=== PATIENT | female | born 1975 | race Caucasian/White ===

== ENCOUNTER 2016-06-26 16:54 | Emergency (ER) | payer BC, OTHER ==
[2016-06-26] MEDS ORDERED: TORAdol 30 mg Injection IM ONE (18:11)
[2016-06-26] MEDS ORDERED: Phenergan 25 MG INJ IM ONE (18:11)
[2016-06-26] MEDS ORDERED: Phenergan 25 MG INJ ONE (18:13)
[2016-06-26] MEDS ORDERED: TORAdol 30 mg Injection ONE (18:13)
--- NOTE | 2016-06-26 18:15 | ERPHSYRPT ---
- History of Present Illness Time Seen by Provider: 06/26/16 18:08 Source: patient Patient Subjective Stated Complaint: PT REPORTS HEADACHE BEGINNING YESTERDAY- STATES SHE HAS A HX-DENIES DIFFERENCES IN THIS ONE-DENIES NUMBNESS OR TINLGING- DENIES VISUAL CHANGES-REPORTS NAUSEA BUT DENIES VOMITING Triage Nursing Assessment: PT PINK WARM ET DRY-PUPILS REACTIVE-PT MOVING ALL EXTREMITIES WITH EASE-PT A & O X 3 Physician History: This is a 40-year-old morbidly obese white female she arrives with complaint of a headache frontal area symptoms since yesterday she states she has had nausea she states she has had photophobia she denies any vomiting she has no fevers Past medical history includes migraines, hypothyroid, high blood pressure, GERD , anxiety. Past surgical history includes appendectomy. Patient states she is on Depo-Provera shots. Timing/Duration: yesterday Severity: moderate Modifying Factors: Improves With: nothing Associated Symptoms: nausea, headaches, other (photophobia), No vomiting, No abdominal pain, No shortness of breath, No heartburn, No diaphoresis, No cough, No chills, No chest pain, No fever, No loss of appetite, No malaise, No rash, No syncope, No seizure, No weakness Allergies/Adverse Reactions: No Known Drug Allergies Allergy (Verified 06/26/16 17:30) Home Medications: Enalapril Maleate [Vasotec] 10 mg PO QHS 02/09/12 [History] Levothyroxine Sodium 150 Mcg [Synthroid 150 Mcg] 125 mcg PO DAILY 06/09/15 [History] Medroxyprogesterone Acetate [Depo-Provera] 150 mg IM DIRECTIONS UNKNOWN [History] Potassium 99 mg PO QHS 06/09/15 [History] Hx Tetanus, Diphtheria Vaccination/Date Given: Yes Hx Influenza Vaccination/Date Given: Yes Hx Pneumococcal Vaccination/Date Given: No Immunizations Up to Date: Yes - Review of Systems Constitutional: No Fever, No Chills Eyes: Photophobia, No Discharge, No Eye Pain, No Eye Redness, No Itchy, No Tearing, No Vision Changes, No Double Vision, No Foreign Body Sensation Ears, Nose, & Throat: No Symptoms, No Ear Pain, No Ear Discharge, No Hearing Changes, No Tinnitus, No Nose Pain, No Nose Congestion, No Nose Discharge, No Sinus Drainage, No Epistaxis, No Mouth Pain, No Mouth Swelling, No Loose Teeth, No Throat Pain, No Throat Swelling, No Hoarse, No Painful Swallowing, No Snoring , No Stridor Respiratory: No Cough, No Dyspnea Cardiac: No Chest Pain, No Edema, No Syncope Abdominal/Gastrointestinal: No Abdominal Pain, No Nausea, No Vomiting, No Diarrhea Genitourinary Symptoms: No Dysuria Musculoskeletal: No Symptoms Skin: No Rash Neurological: Headache, No Dizziness, No Focal Weakness, No Gait Changes, No Irritability, No Lethargy, No Paralysis, No Parasthesia, No Seizure, No Sensory Changes, No Speech Changes, No Tics, No Tremors, No Vertigo Psychological: No Symptoms Endocrine: No Symptoms All Other Systems: Reviewed and Negative - Past Medical History Pertinent Past Medical History: Yes Neurological History: Migraines ENT History: No Pertinent History Cardiac History: Hypertension Respiratory History: No Pertinent History Endocrine Medical History: Hypothyroidism Musculoskeletal History: No Pertinent History GI Medical History: GERD History: No Pertinent History Psycho-Social History: Anxiety Female Reproductive Disorders: No Pertinent History Other Medical History: history of falling august of 2014, pt states I tripped. - Past Surgical History Past Surgical History: Yes Neuro Surgical History: No Pertinent History Cardiac: No Pertinent History Respiratory: No Pertinent History Gastrointestinal: Appendectomy Genitourinary: No Pertinent History Musculoskeletal: No Pertinent History Female Surgical History: No Pertinent History Other Surgical History: appendectomy - Social History Smoking Status: Never smoker Exposure to second hand smoke: No Drug Use: none Patient Lives Alone: No - Female History Hx Last Menstrual Period: DEPO Hx Now: No - Nursing Vital Signs Nursing Vital Signs: Initial Vital Signs Temperature 98.1 F Temperature Source Oral Pulse Rate 99 Respiratory Rate 22 Blood Pressure [Right Arm] 166/80 Pain Intensity 6 - Physical Exam General Appearance: mild distress Eye Exam: PERRL/EOMI, eyes nml inspection, photophobia, other (fundi unremarkable) Ears, Nose, Throat Exam: normal ENT inspection, TMs normal, pharynx normal, moist mucous membranes Neck Exam: normal inspection, non-tender, supple, full range of motion Respiratory Exam: normal breath sounds, lungs clear, No respiratory distress Cardiovascular Exam: regular rate/rhythm, normal heart sounds, normal peripheral pulses Gastrointestinal/Abdomen Exam: soft, normal bowel sounds, No tenderness, No mass Back Exam: normal inspection, normal range of motion, No CVA tenderness, No vertebral tenderness Extremity Exam: normal inspection, normal range of motion, pelvis stable Neurologic Exam: alert, oriented x 3, cooperative, normal mood/affect, nml cerebellar function, nml station & gait, sensation nml, No motor deficits Skin Exam: normal color, warm, dry, No rash SpO2 Interpretation: normal - Course Nursing assessment & vital signs reviewed: Yes Ordered Tests: Medication Summary Discontinued Medications Generic Name Dose Route Start Last Admin Trade Name Shaun PRN Reason Stop Dose Admin Ketorolac Tromethamine 60 mg 06/26/16 18:11 06/26/16 18:19 Toradol 30 Mg Injection IM 06/26/16 18:12 60 mg STAT ONE Administration Ketorolac Tromethamine Confirm 06/26/16 18:13 Toradol 30 Mg Injection Administered 06/26/16 18:14 Dose 60 mg .ROUTE .STK-MED ONE Promethazine HCl 25 mg 06/26/16 18:11 06/26/16 18:18 Phenergan 25 Mg Inj IM 06/26/16 18:12 25 mg STAT ONE Administration Promethazine HCl Confirm 06/26/16 18:13 Phenergan 25 Mg Inj Administered 06/26/16 18:14 Dose 25 mg .ROUTE .STK-MED ONE - Progress Progress: improved Progress Note: 06/26/16 18:14 40-year-old morbidly obese white female with history of migraines hypothyroidism high blood pressure GERD anxiety. Who arrives with complaint of a headache since yesterday no fevers, positive photophobia positive nausea. Patient has a history of migraine she has been treated successfully with Phenergan and Toradol in the past. Will go ahead and give patient Toradol and Phenergan IM 06/26/16 18:48 Patient is improved but not completely pain-free she does feel like she can go home. Will discharge patient. Will give patient a small amount of [place] patient has very infrequent headaches. - Departure Time of Disposition: 18:48 Departure Disposition: Home Clinical Impression: Migraine headache Qualifiers: Migraine type: unspecified Status migrainosus presence: without status migrainosus Intractability: not intractable Qualified Code(s): G43.909 - Migraine, unspecified, not intractable, without status migrainosus Condition: Fair Critical Care Time: No Instructions: Headache Additional Instructions: Return home. Rest in a dark quiet room. Dun[place] 5/325 #12 one to 2 orally every 4-6 hours as needed for pain. Follow-up with your family symptoms no better in 24-48 hours become worse or persist longer than 72 hours. Return for acute distress or for severe symptoms. Prescriptions: Hydrocodone Bit/Acetaminophen [[place] 5-325 Tablet] 1 - 2 tab PO Q4-6HPRN PRN # 12 tablet PRN Reason: Pain
[2016-06-26 18:21] VITALS: BP 166/80; PULSE 99; O2SAT 97
== END 2016-06-26 18:55 | disposition home or self-care (01) ==
LOC: ED 16:54
DX: G43.909 Migraine, unspecified, not intractable, without status migrainosus (principal)
CPT/HCPCS: 96372; 99283; 99284; J1885; J2550

== ENCOUNTER 2017-07-01 07:42 | Observation (INO) | payer OTHER ==
[2017-07-01 08:33] LABS: Lactic Acid 4.1 (0.4-2.0)
[2017-07-01 08:34] LABS: Appearance CLOUDY (CLEAR); Bilirubin NEGATIVE (NEGATIVE); Blood 250 Ery/ul (0-5); Glucose NEGATIVE (NEGATIVE); Ketones NEGATIVE (NEGATIVE); Leukocyte Esterase TRACE (NEGATIVE); Nitrite NEGATIVE (NEGATIVE); Protein,Urine Dip 30 (Negative); Specific Gravity 1.025 (1.005-1.025); Urobilinogen NORMAL mg/dL (0-1)
[2017-07-01] MEDS ORDERED: Sodium Chloride 0.9% 1000 ML 1,000 ML IV STA ×2 (08:39→10:47)
[2017-07-01] MEDS ORDERED: Zofran 4 MG/2 ML VIAL IV ONE (08:39)
[2017-07-01] MEDS ORDERED: MORPHINE SULFATE 4 MG INJ IV ONE (08:39)
--- NOTE | 2017-07-01 08:39 | ERPHSYRPT ---
- History of Present Illness Time Seen by Provider: 07/01/17 08:15 Historian: patient Exam Limitations: no limitations Patient Subjective Stated Complaint: pain in lower abdomen Triage Nursing Assessment: pt alert and oritnedx3, able to ambulate by self, gait slightly unsteady, and patient became out of breath when walking, pupils perrla3, skin has neuro dermatitis all over arms and legs she picks at scabs so some are inflamed, pain on palpation to center lower abdomen, skin wamr dry and intact with exception of the sores from the dermatitis. leeetdella tejadaoems short of breath on exertion. Physician History: The patient is a morbidly obese 41-year-old female with her mother complaining of abdominal pain since yesterday morning. She is nauseated but has not vomited. She has had some loose stools. She's had spells of being chilled and then hot. She hasn't eaten much since yesterday. She also complains of having urinary frequency and urgency. She is short of breath but she claims this is due to her morbid obesity. She states her shortness of breath is unchanged. She denies chest pain. She is on Depo-Provera. She did not receive the influenza vaccination this year. Her past medical history is significant for morbid obesity, migraine headaches, anxiety, hypertension, GERD, hypothyroidism , and appendectomy. Timing/Duration: yesterday Activities at Onset: none Quality: aching Abdominal Pain Onset Location: suprapubic Pain Radiation: no radiation Severity of Pain-Max: moderate Severity of Pain-Current: moderate Modifying Factors: Improves With: nothing Associated Symptoms: diarrhea, nausea, No chest pain, No vomiting Previous symptoms: no prior history Allergies/Adverse Reactions: No Known Drug Allergies Allergy (Verified 06/26/16 17:30) Home Medications: Enalapril Maleate [Vasotec] 10 mg PO QHS 02/09/12 [History] Levothyroxine Sodium 150 Mcg [Synthroid 150 Mcg] 125 mcg PO DAILY 06/09/15 [History] Medroxyprogesterone Acetate [Depo-Provera] 150 mg IM DIRECTIONS UNKNOWN [History] Potassium 99 mg PO QHS 06/09/15 [History] Hx Tetanus, Diphtheria Vaccination/Date Given: Yes Hx Influenza Vaccination/Date Given: No Hx Pneumococcal Vaccination/Date Given: No Immunizations Up to Date: Yes - Review of Systems Constitutional: No Fever, No Chills Eyes: No Symptoms Ears, Nose, & Throat: No Symptoms Respiratory: No Cough, No Dyspnea Cardiac: No Chest Pain, No Edema, No Syncope Abdominal/Gastrointestinal: No Abdominal Pain, No Nausea, No Vomiting, No Diarrhea Genitourinary Symptoms: Dysuria, Frequency Musculoskeletal: No Back Pain, No Neck Pain Skin: Skin Lesions Neurological: No Dizziness, No Focal Weakness, No Sensory Changes Psychological: No Symptoms Endocrine: No Symptoms Hematologic/Lymphatic: No Symptoms Immunological/Allergic: No Symptoms All Other Systems: Reviewed and Negative - Past Medical History Pertinent Past Medical History: Yes Neurological History: Migraines ENT History: No Pertinent History Cardiac History: Hypertension Respiratory History: No Pertinent History Endocrine Medical History: Hypothyroidism Musculoskeletal History: No Pertinent History GI Medical History: GERD History: No Pertinent History Psycho-Social History: Anxiety Female Reproductive Disorders: No Pertinent History Other Medical History: history of falling august of 2014, pt states I tripped. - Past Surgical History Past Surgical History: Yes Neuro Surgical History: No Pertinent History Cardiac: No Pertinent History Respiratory: No Pertinent History Gastrointestinal: Appendectomy Genitourinary: No Pertinent History Musculoskeletal: No Pertinent History Female Surgical History: No Pertinent History Other Surgical History: appendectomy - Social History Smoking Status: Never smoker Exposure to second hand smoke: No Drug Use: none Patient Lives Alone: Yes - Female History Hx Now: No - Nursing Vital Signs Nursing Vital Signs: Initial Vital Signs Temperature 98.4 F 07/01/17 07:42 Pulse Rate 140 H 07/01/17 07:42 Respiratory Rate 24 07/01/17 07:42 Blood Pressure 175/70 07/01/17 07:42 O2 Sat by Pulse Oximetry 98 07/01/17 07:42 Pain Scale Pain Intensity 2 - Physical Exam General Appearance: no apparent distress, alert Eye Exam: PERRL/EOMI, eyes nml inspection Ears, Nose, Throat Exam: normal ENT inspection, pharynx normal, moist mucous membranes Neck Exam: normal inspection, non-tender, supple, full range of motion Respiratory Exam: normal breath sounds, lungs clear, No respiratory distress Cardiovascular Exam: regular rate/rhythm, normal heart sounds Gastrointestinal/Abdomen Exam: tenderness (suprapubic), other (obese) Pelvic Exam: not done Rectal Exam: not done Back Exam: normal inspection, normal range of motion, No CVA tenderness, No vertebral tenderness Extremity Exam: normal inspection, normal range of motion, pelvis stable Neurologic Exam: alert, oriented x 3, cooperative, normal mood/affect, nml cerebellar function, sensation nml, No motor deficits Skin Exam: normal color, warm, dry SpO2 Interpretation: normal SpO2: 98 Oxygen Delivery: Room Air Ordered Tests: Active Orders 24 hr Category Date Time Status Cath for Specimen-Straight STAT Care 07/01/17 08:23 Active IV Insertion STAT Care 07/01/17 08:23 Active Oxygen-ED Only NASAL CANNULA 2 lpm Care 07/01/17 09:16 Active BLOOD CULTURE Stat Lab 07/01/17 08:20 Received CBC W DIFF Stat Lab 07/01/17 08:20 Completed CMP Stat Lab 07/01/17 08:20 Completed CULTURE,URINE Stat Lab 07/01/17 08:20 Received HCG QUALITATIVE,SERUM Stat Lab 07/01/17 08:20 Completed LIPASE Stat Lab 07/01/17 08:20 Completed Lactic Acid Stat Lab 07/01/17 10:33 Completed Lactic Acid Urgent Lab 07/01/17 08:32 Completed Manual Differential NC Stat Lab 07/01/17 08:20 Completed UA W/ MICROSCOPIC Stat Lab 07/01/17 08:20 Completed Medication Summary Generic Name Dose Route Start Last Admin Trade Name Freq PRN Reason Stop Dose Admin Sodium Chloride 1,000 mls @ 999 mls/hr 07/01/17 10:47 07/01/17 10:50 Sodium Chloride 0.9% 1000 Ml IV 07/01/17 11:47 999 mls/hr .Q1H1M STA Administration Discontinued Medications Generic Name Dose Route Start Last Admin Trade Name Freq PRN Reason Stop Dose Admin Ceftriaxone Sodium/Dextrose 1 g in 50 mls @ 100 mls/hr 07/01/17 08:43 09:03 Rocephin 1 Gm-D5w 50 Ml Bag IV 07/01/17 09:12 100 mls/hr STAT STA Administration Sodium Chloride 1,000 mls @ 999 mls/hr 07/01/17 08:39 07/01/17 09:03 Sodium Chloride 0.9% 1000 Ml IV 07/01/17 09:39 999 mls/hr .Q1H1M STA Administration Sodium Chloride Confirm 07/01/17 08:51 Sodium Chloride 0.9% 1000 Ml Administered 07/01/17 08:52 Dose 1,000 mls @ ud .ROUTE .STK-MED ONE Ceftriaxone Sodium/Dextrose Confirm 07/01/17 08:51 Rocephin 1 Gm-D5w 50 Ml Bag Administered 07/01/17 08:52 Dose 1 g in 50 mls @ ud IV .STK-MED ONE Sodium Chloride Confirm 07/01/17 10:19 Sodium Chloride 0.9% 1000 Ml Administered 07/01/17 10:20 Dose 1,000 mls @ ud .ROUTE .STK-MED ONE Morphine Sulfate 4 mg 07/01/17 08:39 07/01/17 09:03 Morphine Sulfate 4 Mg Inj IV 07/01/17 08:40 4 mg STAT ONE Administration Morphine Sulfate Confirm 07/01/17 08:50 Morphine Sulfate 4 Mg Inj Administered 07/01/17 08:51 Dose 4 mg .ROUTE .STK-MED ONE Ondansetron HCl 4 mg 07/01/17 08:39 07/01/17 09:03 Zofran 4 Mg/2 Ml Vial IV 07/01/17 08:40 4 mg STAT ONE Administration Ondansetron HCl Confirm 07/01/17 08:50 Zofran 4 Mg/2 Ml Vial Administered 07/01/17 08:51 Dose 4 mg .ROUTE .STK-MED ONE Lab/Rad Data: Laboratory Result Diagrams 07/01/17 08:20 07/01/17 08:20 Laboratory Results 07/01/17 07/01/17 07/01/17 Range/Units 10:33 09:23 08:32 WBC (4.0-10.5) K/mm3 RBC (4.1-5.4) M/mm3 Hgb (12.0-16.0) gm/dl Hct (35-47) % MCV (78-100) fl MCH (26-32) pg MCHC (32-36) g/dl RDW (11.5-14.0) % Plt Count (150-450) K/mm3 MPV (6-9.5) fl Segmented Neutrophils (36.0-66.0) % Lymphocytes (Manual) (24-44) % Monocytes (Manual) (0.0-12.0) % Differential Comment Platelet Estimate (NORMAL) Polychromasia Poikilocytosis Anisocytosis Sodium (136-145) mEq/L Potassium (3.5-5.1) mEq/L Chloride (98-107) mEq/L Carbon Dioxide (21-32) mEq/L Anion Gap (5-15) MEQ/L BUN (9-20) mg/dL Creatinine (0.55-1.30) mg/dl Estimated GFR ML/MIN Glucose (70-110) MG/DL Lactic Acid 1.3 4.1 H (0.4-2.0) Calcium (8.5-10.1) mg/dL Total Bilirubin (0.2-1.0) mg/dL AST (15-37) U/L ALT (12-78) U/L Alkaline Phosphatase (46-116) U/L Serum Total Protein (6.4-8.2) gm/dL Albumin (3.4-5.0) g/dL Lipase (73-393) U/L Serum , Qual (Negative) Ur Collection Type Urine Color (YELLOW) Urine Appearance (CLEAR) Urine pH (5-6) Ur Specific Pauline (1.005-1.025) Urine Protein (Negative) Urine Ketones (NEGATIVE) Urine Blood (0-5) Simeon/ul Urine Nitrite (NEGATIVE) Urine Bilirubin (NEGATIVE) Urine Urobilinogen (0-1) mg/dL Ur Leukocyte Esterase (NEGATIVE) Urine Microscopic RBC (0-2) /HPF Urine Microscopic WBC (0-5) /HPF Ur Epithelial Cells (FEW) /HPF Urine Bacteria (NEGATIVE) /HPF Hyaline Casts (0-2) /LPF Urine Mucus (NEGATIVE) /HPF Urine Culture Reflexed (NO) Urine Glucose (NEGATIVE) mg/dL Influenza Type A Ag NEGATIVE (NEGATIVE) Influenza Type B Ag NEGATIVE (NEGATIVE) RSV (PCR) NEGATIVE (Negative) Specimen Received 07/01/17 07/01/17 07/01/17 Range/Units 08:20 08:20 08:20 WBC 9.7 (4.0-10.5) K/mm3 RBC 4.58 (4.1-5.4) M/mm3 Hgb 10.1 L (12.0-16.0) gm/dl Hct 33.8 L (35-47) % MCV 73.8 L (78-100) fl MCH 22.0 L (26-32) pg MCHC 29.9 L (32-36) g/dl RDW 17.4 H (11.5-14.0) % Plt Count 449 (150-450) K/mm3 MPV 10.1 H (6-9.5) fl Segmented Neutrophils 80 H (36.0-66.0) % Lymphocytes (Manual) 16 L (24-44) % Monocytes (Manual) 4 (0.0-12.0) % Differential Comment ABNORMAL Platelet Estimate NORMAL (NORMAL) Polychromasia 1+ Poikilocytosis 1+ Anisocytosis 1+ Sodium 144 (136-145) mEq/L Potassium 3.9 (3.5-5.1) mEq/L Chloride 106 (98-107) mEq/L Carbon Dioxide 20.8 L (21-32) mEq/L Anion Gap 20.8 H (5-15) MEQ/L BUN 8 L (9-20) mg/dL Creatinine 1.11 (0.55-1.30) mg/dl Estimated GFR 57 ML/MIN Glucose 112 H (70-110) MG/DL Lactic Acid (0.4-2.0) Calcium 8.6 (8.5-10.1) mg/dL Total Bilirubin 0.40 (0.2-1.0) mg/dL AST 21 (15-37) U/L ALT 22 (12-78) U/L Alkaline Phosphatase 117 H (46-116) U/L Serum Total Protein 7.5 (6.4-8.2) gm/dL Albumin 3.3 L (3.4-5.0) g/dL Lipase 146 (73-393) U/L Serum , Qual NEGATIVE (Negative) Ur Collection Type Urine Color (YELLOW) Urine Appearance (CLEAR) Urine pH (5-6) Ur Specific Pauline (1.005-1.025) Urine Protein (Negative) Urine Ketones (NEGATIVE) Urine Blood (0-5) Simeon/ul Urine Nitrite (NEGATIVE) Urine Bilirubin (NEGATIVE) Urine Urobilinogen (0-1) mg/dL Ur Leukocyte Esterase (NEGATIVE) Urine Microscopic RBC (0-2) /HPF Urine Microscopic WBC (0-5) /HPF Ur Epithelial Cells (FEW) /HPF Urine Bacteria (NEGATIVE) /HPF Hyaline Casts (0-2) /LPF Urine Mucus (NEGATIVE) /HPF Urine Culture Reflexed (NO) Urine Glucose (NEGATIVE) mg/dL Influenza Type A Ag (NEGATIVE) Influenza Type B Ag (NEGATIVE) RSV (PCR) (Negative) Specimen Received 07/01/17 Range/Units 08:20 WBC (4.0-10.5) K/mm3 RBC (4.1-5.4) M/mm3 Hgb (12.0-16.0) gm/dl Hct (35-47) % MCV (78-100) fl MCH (26-32) pg MCHC (32-36) g/dl RDW (11.5-14.0) % Plt Count (150-450) K/mm3 MPV (6-9.5) fl Segmented Neutrophils (36.0-66.0) % Lymphocytes (Manual) (24-44) % Monocytes (Manual) (0.0-12.0) % Differential Comment Platelet Estimate (NORMAL) Polychromasia Poikilocytosis Anisocytosis Sodium (136-145) mEq/L Potassium (3.5-5.1) mEq/L Chloride (98-107) mEq/L Carbon Dioxide (21-32) mEq/L Anion Gap (5-15) MEQ/L BUN (9-20) mg/dL Creatinine (0.55-1.30) mg/dl Estimated GFR ML/MIN Glucose (70-110) MG/DL Lactic Acid (0.4-2.0) Calcium (8.5-10.1) mg/dL Total Bilirubin (0.2-1.0) mg/dL AST (15-37) U/L ALT (12-78) U/L Alkaline Phosphatase (46-116) U/L Serum Total Protein (6.4-8.2) gm/dL Albumin (3.4-5.0) g/dL Lipase (73-393) U/L Serum , Qual (Negative) Ur Collection Type CATH Urine Color YELLOW (YELLOW) Urine Appearance CLOUDY (CLEAR) Urine pH 5.0 (5-6) Ur Specific Pauline 1.025 (1.005-1.025) Urine Protein 30 (Negative) Urine Ketones NEGATIVE (NEGATIVE) Urine Blood 250 (0-5) Simeon/ul Urine Nitrite NEGATIVE (NEGATIVE) Urine Bilirubin NEGATIVE (NEGATIVE) Urine Urobilinogen NORMAL (0-1) mg/dL Ur Leukocyte Esterase TRACE (NEGATIVE) Urine Microscopic RBC 25-50 (0-2) /HPF Urine Microscopic WBC 5-10 (0-5) /HPF Ur Epithelial Cells FEW (FEW) /HPF Urine Bacteria MODERATE (NEGATIVE) /HPF Hyaline Casts 0-2 (0-2) /LPF Urine Mucus MODERATE (NEGATIVE) /HPF Urine Culture Reflexed YES (NO) Urine Glucose NEGATIVE (NEGATIVE) mg/dL Influenza Type A Ag (NEGATIVE) Influenza Type B Ag (NEGATIVE) RSV (PCR) (Negative) Specimen Received 0807/01/17 - Progress Progress: improved Discussed with : Grant Will see patient in: hospital (observation) Counseled pt/family regarding: lab results, diagnosis - Departure Time of Disposition: 11:20 Departure Disposition: Observation (per DR Balbuena) Clinical Impression: UTI (urinary tract infection), Abdominal pain Condition: Stable Critical Care Time: No Referrals: MARYSOL FROST [Primary Care Provider] -
[2017-07-01 08:42] LABS: Bacteria MODERATE /HPF (NEGATIVE); Epithelial Cells FEW /HPF (FEW); Hyaline Casts 0-2 /LPF (0-2); Mucus MODERATE /HPF (NEGATIVE)
[2017-07-01] MEDS ORDERED: ROCEPHIN 1 Gm-D5w 50 ml Bag** 1 G/50 ML IVPB IV STA (08:43)
[2017-07-01 08:48] LABS: Granulocyte Absolute (ANC) 7.44 (1.4-6.9); Hematocrit 33.8 % (35-47); Hemoglobin 10.1 gm/dl (12.0-16.0); Mean Cell Volume 73.8 fl (78-100); Mean Corpuscular Hgb Concent. 29.9 g/dl (32-36); Mean Platelet Volume 10.1 fl (6-9.5); Platelet Count 449 K/mm3 (150-450); Red Blood Count 4.58 M/mm3 (4.1-5.4); Red Cell Distribution Width 17.4 % (11.5-14.0); White Blood Count 9.7 K/mm3 (4.0-10.5)
[2017-07-01] MEDS ORDERED: Zofran 4 MG/2 ML VIAL ONE (08:50)
[2017-07-01] MEDS ORDERED: MORPHINE SULFATE 4 MG INJ ONE (08:50)
[2017-07-01] MEDS ORDERED: ROCEPHIN 1 Gm-D5w 50 ml Bag** 1 G/50 ML IVPB IV ONE (08:51)
[2017-07-01] MEDS ORDERED: Sodium Chloride 0.9% 1000 ML 1,000 ML ONE ×2 (08:51→10:19)
[2017-07-01 08:56] LABS: ALBUMIN 3.3 g/dL (3.4-5.0); ANION GAP 20.8 MEQ/L (5-15); BILIRUBIN,TOTAL 0.4 mg/dL (0.2-1.0); Calcium 8.6 mg/dL (8.5-10.1); Carbon Dioxide 20.8 mEq/L (21-32); Creatinine 1 1.11 mg/dl (0.55-1.30); Potassium 3.9 mEq/L (3.5-5.1); Total Protein 7.5 gm/dL (6.4-8.2)
[2017-07-01 09:32] LABS: Lymphocytes 16 % (24-44); Monocyte 4 % (0.0-12.0); Neutrophils 80 % (36.0-66.0); Total Cells Counted 100
[2017-07-01 09:42] LABS: ANISOCYTOSIS 1+; Platelet Estimate NORMAL (NORMAL); Poikilocytosis 1+; Polychromasia 1+
[2017-07-01 10:01] LABS: INFLUENZA A NEGATIVE (NEGATIVE); INFLUENZA B NEGATIVE (NEGATIVE); RESPIRATORY SYNCTIAL VIRUS NEGATIVE (Negative)
[2017-07-01] MEDS ORDERED: MORPHINE SULFATE 2 MG INJ IV PRN (12:11)
[2017-07-01] MEDS ORDERED: TYLENOL 325 MG PO PRN (12:11)
[2017-07-01] MEDS ORDERED: Zofran 4 MG/2 ML VIAL IV PRN (12:11)
[2017-07-01] MEDS: Sodium Chloride 0.9% 1000 ML 1,000 ML IV SCH (13:12)
[2017-07-01] MEDS: FLAGYL 500 MG IVPB 500 MG/100 ML BAG IV SCH ×2 (13:26→18:02)
[2017-07-01] MEDS: NYSTOP POWDER 15 GM TP SCH ×2 (13:27→21:35)
[2017-07-01] MEDS ORDERED: Vasotec 10 MG PO SCH (22:00)
[2017-07-02] MEDS: FLAGYL 500 MG IVPB 500 MG/100 ML BAG IV SCH ×2 (01:13→06:08)
[2017-07-02] MEDS: Sodium Chloride 0.9% 1000 ML 1,000 ML IV SCH (01:13)
[2017-07-02 06:17] LABS: BASOPHIL % 0.2 % (0.0-0.4); Basophil (Absolute #) 0.02 (0-0.4); Eosinophil % 0.6 % (0.00-5.0); Eosinophil (Absolute #) 0.05 (0-0.5); Granulocyte Absolute (ANC) 6.86 (1.4-6.9); Granulocytes % 78.4 % (36.0-66.0); Hematocrit 30.2 % (35-47); Hemoglobin 8.9 gm/dl (12.0-16.0); Lymphocyte (Absolute #) 1.16 (1.0-4.6); Lymphocytes % 13.2 % (24.0-44.0); Mean Cell Volume 75.5 fl (78-100); Mean Corpuscular Hgb Concent. 29.5 g/dl (32-36); Mean Platelet Volume 9.9 fl (6-9.5); Monocyte (Absolute #) 0.67 (0.0-1.3); Monocytes % 7.6 % (0.0-12.0); Platelet Count 369 K/mm3 (150-450); Red Cell Distribution Width 17.5 % (11.5-14.0); White Blood Count 8.8 K/mm3 (4.0-10.5)
[2017-07-02 06:24] LABS: ANION GAP 13.8 MEQ/L (5-15); BLOOD UREA NITROGEN 9 mg/dL (9-20); CHLORIDE 110 mEq/L (98-107); Calcium 8.5 mg/dL (8.5-10.1); Carbon Dioxide 25.9 mEq/L (21-32); Creatinine 1 0.93 mg/dl (0.55-1.30); EST GLOMERULAR FILTRATION RATE > 60 ML/MIN; Glucose 99 MG/DL (70-110); Potassium 4.3 mEq/L (3.5-5.1); SODIUM 145 mEq/L (136-145)
[2017-07-02 06:43] LABS: Mean Corpuscular Hemoglobin 22.2 pg (26-32)
[2017-07-02] MEDS ORDERED: MEDROXYPROGESTERONE ACETATE 150 MG IM SCH (07:30)
[2017-07-02 07:42] VITALS: BP 122/68; PULSE 107
[2017-07-02 07:43] VITALS: O2SAT 93
[2017-07-02] MEDS ORDERED: MEDICATION INTERVENTION PO SCH (07:45)
--- NOTE | 2017-07-02 08:50 | PCM.DCORD ---
- Discharge Discharge Date: 07/02/17 Disposition: Home, Self-Care Condition: Stable Prescriptions: New Levofloxacin [Levaquin] 500 mg PO DAILY #7 tablet Continue Enalapril Maleate [Vasotec] 10 mg PO QHS Potassium 99 mg PO QHS Levothyroxine Sodium 150 Mcg [Synthroid 150 Mcg] 125 mcg PO DAILY Medroxyprogesterone Acetate [Depo-Provera] 150 mg IM DIRECTIONS UNKNOWN Esomeprazole Magnesium [Nexium] 20 mg PO DAILY Follow up with: MARYSOL FROST [Primary Care Provider] - 1 Week
[2017-07-02 09:26] LABS: Iron Saturation 5.9 % (20-39)
[2017-07-02] MEDS ORDERED: Protonix 20MG Tablet PO SCH (10:00)
[2017-07-02] MEDS ORDERED: SYNTHROID 125 MCG PO SCH (10:00)
[2017-07-02] MEDS ORDERED: FLUCELVAX QUAD 2017-2018 SYR IM ONE (10:00)
[2017-07-02] MEDS ORDERED: ROCEPHIN 1 Gm-D5w 50 ml Bag** 1 G/50 ML IVPB IV SCH (10:00)
--- NOTE | 2017-07-02 10:18 | HP ---
HISTORY OF PRESENT ILLNESS: This is a 41 year-old patient of Dr. Soriano who presented to the emergency department. She reports that she started to have abdominal pain yesterday that got worse today. She reports that it was hard to walk or stand up because of this. She denies any fever. She started to have diarrhea yesterday but does not think she had any blood in this. She denies any dysuria but reports she did have urgency with increased urinary frequency. Her pain was in midline below her umbilicus. She had some nausea but no vomiting. She reports the morphine here in the emergency department helped. REVIEW OF SYSTEMS: She reports some dyspnea that is her baseline due to obesity. She denies any chest pain. She does not wear oxygen at home. She reports she has history of migraines but just has a regular headache now. She reports she has lower extremity edema at baseline. No rashes. No cough. No rhinorrhea. PAST MEDICAL HISTORY: Migraines, hypothyroidism, gastroesophageal reflux disease, anxiety, morbid obesity. PAST SURGICAL HISTORY: Appendectomy. MEDICATIONS: She is unsure of everything she is taking but taken from her clinic chart she is on Depo-Provera every three months, Enalapril 10 mg daily, Nexium 40 mg daily, levothyroxine 125 mcg daily, Maxalt 10 mg as needed, paroxetine 40 mg daily, Voltaren 1% topical gel 2 gm applied to the area topically four times a day. ALLERGIES: NKDA. SOCIAL HISTORY: She denies any tobacco or alcohol use. She lives at home alone but her mother is there frequently. Her mother is at the bedside today. FAMILY HISTORY: Mother is living and hypertension. Father living and has history of coronary artery disease with myocardial infarction and hypertension. PHYSICAL EXAMINATION: VITAL SIGNS: Temperature current 98.9F, temperature max 98.9F, heart rate 114 to 140 currently 116, respiratory rate 18 to 22, blood pressure 113 to 175 over 70 to 79, currently 127/79, weight 196.6 kg. Oxygen saturation 91% on room air, 99% on 2 liters nasal cannula. GENERAL: The patient is lying in bed a pleasant talkative lady in no acute distress although she becomes dyspneic with any movement. Her mother is at the bedside. CVS: Her heart has a regular rate and rhythm. No murmurs, gallops or rubs. CHEST: Clear to auscultation bilaterally. No crackles or wheezes. ABDOMEN: She is tender in suprapubic area. No guarding. No rigidity. Normal bowel sounds. EXTREMITIES: Trace edema bilaterally. SKIN: She has multiple excoriations. She denies any drainage from any of these. LABORATORY DATA AND TESTS: Her white blood cell count was normal at 9.7, hemoglobin 10.1. Carbon dioxide 20.8, glucose 112, alkaline phosphatase 117, albumin 3.3. UA with 25 to 50 red blood cells, 5 to 10 white blood cells, moderate bacteria. Influenza A, B and respiratory syncytial virus were negative. She was unable to have any imaging due to morbid obesity. ASSESSMENT AND PLAN: 1) ABDOMINAL PAIN: Most likely either due to urinary tract infection or diverticulitis. I discussed with the patient that we could treat her here with antibiotics but we would be unable to do any imaging. She understands this and knows if her pain worsens she may need transferred to a tertiary care facility that may have the ability to scan her abdomen. We will check a urine culture. We will start her on antibiotics. Dr. Fernandez said he would start ceftriaxone and metronidazole. Will continue with observation. The patient is agreeable to stay here for this. 2) HYPOTHYROIDISM: Will continue her home levothyroxine. 3) ANXIETY: Will resume home medication. 4) GASTROESOPHAGEAL REFLUX DISEASE: Will continue her home medication. 5) HEADACHE: Will try Tylenol.
[2017-07-02] MEDS: NYSTOP POWDER 15 GM TP SCH (10:32)
[2017-07-02] MEDS ORDERED: NON-FORMULARY ITEM (Potassium [Potassium] 99 MG) PO SCH (22:00)
--- NOTE | 2017-07-05 14:24 | DS ---
DISCHARGE DIAGNOSES: 1) PELVIC PAIN. 2) IRON DEFICIENCY ANEMIA. 3) MORBID OBESITY. 4) TACHYCARDIA. HISTORY: The patient is a 41 year-old white female who presented to the emergency room with complaints of abdominal pain. She noted that she had been having increasing frequency of urination but no pain with urination. The patient noted she is dyspneic with walking but she is morbidly obese and reports that she is always short of breath with walking. She has seen Dr. Bran in the past for cardiology but is not actively seeing him presently. The patient also reports that she had some loose stools, some nausea but no vomiting. By this morning she was feeling back to her normal state of health. PAST MEDICAL/SURGICAL HISTORY: Appendectomy. Hypothyroidism. HOME MEDICATIONS: Vasotec 10 mg at night, Synthroid 150 mcg daily, Depo-Provera shot, potassium 99 mg at night. ALLERGIES: NKDA. PHYSICAL EXAMINATION: Revealed a morbidly obese white female in no distress presently. Her vital signs on admission showed temperature 98.4F, pulse 140, respiratory rate 24, blood pressure 175/70. O2 saturation 98% on room air. HEENT: Normocephalic, atraumatic. Pupils equal round reactive to light. Extraocular movements intact. Oropharynx is pink and moist. NECK: Supple without lymphadenopathy, thyromegaly or JVD. CHEST: Clear to auscultation with good air movement bilaterally. HEART: Regular rate and rhythm, somewhat tachycardic. No murmurs, rubs or gallops are heard. ABDOMEN: Soft. No palpable masses able to be palpated. EXTREMITIES: Chronic lymphedema and excoriations. NEUROLOGIC: She is alert and oriented x3. LAB DATA AND TESTS: Hemoglobin 10.1 with microcytic hypochromic indices. White blood cell count 9,700, PLT count 449,000. Her electrolytes were essentially normal. Her BUN 8, creatinine 1.11. Her urine showed 5 to 10 red blood cells and 2 to 5 white blood cells on catheter specimen. HOSPITAL COURSE: The patient was admitted to the hospital and given Rocephin and Flagyl and IV fluids. She was feeling much better by the next morning. She was felt to be ready for discharge home. She was discharged home on Levaquin 500 mg daily. We will check her stools x3 for hemoccult. She will have iron levels tested as well. She will be seen in the office in follow up in one week. We will likely also send her back to [facility] for dyspnea to see if she has perhaps pulmonary hypertension and also to check her ejection fraction if it is contributing cardiac cause to her dyspnea.
== END 2017-07-02 10:40 | disposition home or self-care (01) ==
LOC: ED 07:42 → MED SURG 12:02
PROVIDERS: ADMIT Family Medicine; ATTEND Family Medicine
DX: R10.2 Pelvic and perineal pain (principal); D50.9 Iron deficiency anemia, unspecified; E66.01 Morbid (severe) obesity due to excess calories; R00.0 Tachycardia, unspecified; E03.9 Hypothyroidism, unspecified; K57.92 Diverticulitis of intestine, part unspecified, without perforation or abscess without bleeding; N39.0 Urinary tract infection, site not specified; R51 Headache; K21.9 Gastro-esophageal reflux disease without esophagitis; F41.9 Anxiety disorder, unspecified; Z79.899 Other long term (current) drug therapy
CPT/HCPCS: 36000; 36415; 80048; 80053; 81000; 82728; 83540; 83550; 83605; 83690; 84703; 85025; 87040; 87086; 87631; 94760; 96360; 96361; 96365; 96374; 96375; 99285; G0008; G0378; J0696; J2270; J2405; P9612; 90682; A9270-GY

== ENCOUNTER 2018-09-21 22:52 | Emergency (ER) | payer OTHER ==
[2018-09-21] MEDS ORDERED: Zofran 4 MG/2 ML VIAL IV ONE (22:56)
[2018-09-21] MEDS ORDERED: Sodium Chloride 0.9% 1000 ML 1,000 ML IV STA (22:56)
[2018-09-21] MEDS ORDERED: TORAdol 30 mg Injection IV ONE (22:56)
[2018-09-21] MEDS ORDERED: Sodium Chloride 0.9% 1000 ML 1,000 ML IV SCH (23:15)
--- NOTE | 2018-09-21 23:23 | ERPHSYRPT ---
- History of Present Illness Time Seen by Provider: 09/21/18 23:11 Source: patient Exam Limitations: no limitations Patient Subjective Stated Complaint: sob since 1000. pt states let arm became numb off and on today, but worse after 2029 Triage Nursing Assessment: morbidly obese pt. extremely sob on exhertion. when got in bed tachycardic at 140. at rest tachycardia continues at 124. pt able to catch breath and breathe easier approximatley 10 minutes after getting into bed. pt states she has no cardiac or respiratory hx. pt states she suffers from anxiety Physician History: 43-year-old morbidly obese white female with history of migraines, high blood pressure, hypothyroidism, GERD Patient arrives with complaint of shortness of breath since 10:30 AM this morning she states she's had paresthesia off and on to the left arm since 10:30 this morning as well she has not had any movement or speech problems she has no chest pain. Past medical history includes migraines, high blood pressure, hypothyroidism, GERD apparently had fallen 2014 Past surgical history includes appendectomy Timing/Duration: today Severity: moderate Associated Symptoms: shortness of breath, other (parasthesia left arm), No nausea, No vomiting, No abdominal pain, No heartburn, No diaphoresis, No cough, No chills, No chest pain, No fever, No headaches, No loss of appetite, No malaise, No rash, No syncope, No seizure, No weakness Allergies/Adverse Reactions: No Known Drug Allergies Allergy (Verified 06/26/16 17:30) Home Medications: Enalapril Maleate [Vasotec] 10 mg PO QHS 02/09/12 [History] Levothyroxine Sodium 150 Mcg [Synthroid 150 Mcg] 125 mcg PO DAILY 06/09/15 [History] Medroxyprogesterone Acetate [Depo-Provera] 150 mg IM DIRECTIONS UNKNOWN [History] Potassium 99 mg PO QHS 06/09/15 [History] Esomeprazole Magnesium [Nexium] 20 mg PO DAILY 07/01/17 [History] Clonazepam 0.5 mg [Klonopin 0.5 MG] 0.5 mg PO BID 09/21/18 [History] Topiramate 25 mg PO DAILY 09/21/18 [History] Hx Tetanus, Diphtheria Vaccination/Date Given: Yes Hx Influenza Vaccination/Date Given: No Hx Pneumococcal Vaccination/Date Given: No Immunizations Up to Date: Yes - Review of Systems Constitutional: No Fever, No Chills Eyes: No Symptoms Ears, Nose, & Throat: No Symptoms Respiratory: Dyspnea, No Cough, No Cyanosis, No Dyspnea on Exertion (WADE), No Stridor, No Wheezing Cardiac: No Chest Pain, No Edema, No Syncope Abdominal/Gastrointestinal: No Abdominal Pain, No Nausea, No Vomiting, No Diarrhea Genitourinary Symptoms: No Dysuria Musculoskeletal: No Back Pain, No Neck Pain Skin: No Rash Neurological: Parasthesia (parasthesia left arm) Psychological: No Symptoms Endocrine: No Symptoms All Other Systems: Reviewed and Negative - Past Medical History Pertinent Past Medical History: Yes Neurological History: Migraines ENT History: No Pertinent History Cardiac History: No Pertinent History Respiratory History: No Pertinent History Endocrine Medical History: No Pertinent History Musculoskeletal History: No Pertinent History GI Medical History: No Pertinent History History: No Pertinent History Psycho-Social History: No Pertinent History Female Reproductive Disorders: No Pertinent History Other Medical History: history of falling august of 2014, pt states I tripped. - Past Surgical History Past Surgical History: Yes (at 4 appy) Neuro Surgical History: No Pertinent History Cardiac: No Pertinent History Respiratory: No Pertinent History Gastrointestinal: Appendectomy Genitourinary: No Pertinent History Musculoskeletal: No Pertinent History Female Surgical History: No Pertinent History Other Surgical History: appendectomy - Social History Smoking Status: Never smoker Exposure to second hand smoke: No Drug Use: none Patient Lives Alone: Yes - Female History Hx Last Menstrual Period: unk Hx Now: No - Nursing Vital Signs Nursing Vital Signs: Initial Vital Signs Temperature 99 F 09/21/18 22:54 Pulse Rate 125 H 09/21/18 22:54 Respiratory Rate 23 09/21/18 22:54 Blood Pressure 160/56 09/21/18 22:54 O2 Sat by Pulse Oximetry 96 09/21/18 22:54 Pain Scale Pain Intensity 0 - Physical Exam General Appearance: no apparent distress, alert Eye Exam: PERRL/EOMI, eyes nml inspection Ears, Nose, Throat Exam: normal ENT inspection, TMs normal, pharynx normal, moist mucous membranes Neck Exam: normal inspection, non-tender, supple, full range of motion Respiratory Exam: normal breath sounds, lungs clear, No respiratory distress Cardiovascular Exam: regular rate/rhythm, normal heart sounds, normal peripheral pulses, capillary refill <2 sec Gastrointestinal/Abdomen Exam: soft, normal bowel sounds, No tenderness, No mass Back Exam: normal inspection, normal range of motion, No CVA tenderness, No vertebral tenderness Extremity Exam: normal inspection, normal range of motion, pelvis stable Neurologic Exam: alert, oriented x 3, cooperative, ferris wheel attendant II-XII nml as tested, normal mood/affect, nml cerebellar function, nml station & gait, sensation nml, other (patient alert, oriented x3 speech normal, no facial droop, normal finger to nose, no pronator drift, direct service provider equal and symmetrical 5/5, GCS equals 15 full range of motion all extremities sensation intact to all extremities), No motor deficits SpO2: 99 - Course Nursing assessment & vital signs reviewed: Yes EKG Interpreted by Me: RATE (126 bpm), Sinus Tach, NORMAL AXIS, Other (EKG: Sinus tachycardia, 126 beats per minute, normal axis, no acute ST or T wave changes, ) Ordered Tests: Active Orders 24 hr Category Date Time Status Building Drafting Officer STAT Care 09/21/18 23:15 Active EKG-ER Only STAT Care 09/21/18 23:15 Active IV Insertion STAT Care 09/21/18 23:15 Active Pulse Oximetry (ED) STAT Care 09/21/18 23:15 Active CHEST 1 VIEW (PORTABLE) Stat Exams 09/21/18 23:15 Taken CBC W DIFF Stat Lab 09/21/18 23:36 Completed CMP Stat Lab 09/21/18 23:36 Completed D-DIMER QUANTITATION Stat Lab 09/21/18 23:36 Completed HCG QUALITATIVE,SERUM Stat Lab 09/21/18 23:36 Completed NT PRO BNP Stat Lab 09/21/18 23:36 Completed PROTIME WITH INR Stat Lab 09/21/18 23:36 Completed PTT Stat Lab 09/21/18 23:36 Completed TROPONIN Q3H Lab 09/21/18 23:36 Completed UA W/RFX UR CULTURE Stat Lab 09/22/18 00:56 Completed VENOUS BLOOD GAS Stat Lab 09/21/18 23:30 Completed Medication Summary Discontinued Medications Generic Name Dose Route Start Last Admin Trade Name Freq PRN Reason Stop Dose Admin Enoxaparin Sodium 200 mg 09/22/18 00:37 09/22/18 01:04 Enoxaparin Sodium 1 mg/kg (200 mg) 09/22/18 00:38 200 mg SQ Administration 1XONLY STA Enoxaparin Sodium Confirm 09/22/18 01:04 Enoxaparin Sodium Administered 09/22/18 01:05 Dose 80 mg SQ .STK-MED ONE Sodium Chloride 1,000 mls @ 999 mls/hr 09/21/18 22:56 09/21/18 23:26 Sodium Chloride 0.9% 1000 Ml IV 09/21/18 23:56 Not Given .Q1H1M STA Sodium Chloride 1,000 mls @ 100 mls/hr 09/21/18 23:15 09/21/18 23:37 Sodium Chloride 0.9% 1000 Ml IV 10/21/18 23:14 100 mls/hr .Q10H JAMEEL Administration Sodium Chloride Confirm 09/21/18 23:29 Sodium Chloride 0.9% 1000 Ml Administered 09/21/18 23:30 Dose 1,000 mls @ ud .ROUTE .STK-MED ONE Ketorolac Tromethamine 30 mg 09/21/18 22:56 09/21/18 23:36 Toradol 30 Mg Injection IV 09/21/18 22:57 Not Given STAT ONE Ketorolac Tromethamine Confirm 09/21/18 23:29 Toradol 30 Mg Injection Administered 09/21/18 23:30 Dose 30 mg .ROUTE .STK-MED ONE Ondansetron HCl 4 mg 09/21/18 22:56 09/21/18 23:37 Zofran 4 Mg/2 Ml Vial IV 09/21/18 22:57 Not Given STAT ONE Ondansetron HCl Confirm 09/21/18 23:29 Zofran 4 Mg/2 Ml Vial Administered 09/21/18 23:30 Dose 4 mg .ROUTE .STK-MED ONE Lab/Rad Data: Laboratory Result Diagrams 09/21/18 23:36 09/21/18 23:36 Laboratory Results 09/22/18 09/21/18 09/21/18 Range/Units 00:56 23:36 23:36 WBC (4.0-10.5) K/mm3 RBC (4.1-5.4) M/mm3 Hgb (12.0-16.0) gm/dl Hct (35-47) % MCV (78-100) fl MCH (26-32) pg MCHC (32-36) g/dl RDW (11.5-14.0) % Plt Count (150-450) K/mm3 MPV (6-9.5) fl Gran % (36.0-66.0) % Eos # (Auto) (0-0.5) Absolute Lymphs (auto) (1.0-4.6) Absolute Monos (auto) (0.0-1.3) Lymphocytes % (24.0-44.0) % Monocytes % (0.0-12.0) % Eosinophils % (0.00-5.0) % Basophils % (0.0-0.4) % Absolute Granulocytes (1.4-6.9) Basophils # (0-0.4) PT 13.3 H (9.95-12.35) SECONDS INR 1.14 (0.8-3.0) APTT 24.9 L (25.3-37.0) SECONDS D-Dimer 1861 H* (215-500) ng/mL pO2/FiO2 Ratio % VBG pH (7.32-7.42) VBG pCO2 at Pat Temp (42-55) mm/Hg VBG pO2 at Pat Temp (25-40) mm/Hg VBG HCO3 (22-28) meq/L VBG O2 Sat (Ar) (95-100) VBG Base Excess (-2.0-2.0) VBG Hemoglobin VBG Carboxyhemoglobin (0.0-6.9) % T HGB POC Potassium (3.5-5.1) Sodium (137-145) mmol/L Potassium (3.5-5.1) mmol/L Chloride (98-107) mmol/L Carbon Dioxide (22-30) mmol/L Anion Gap (5-15) MEQ/L BUN (7-17) mg/dL Creatinine (0.52-1.04) mg/dL Estimated GFR ML/MIN Glucose (74-106) mg/dL Calcium (8.4-10.2) mg/dL Total Bilirubin (0.2-1.3) mg/dL AST (14-36) U/L ALT (0-35) U/L Alkaline Phosphatase (38-126) U/L Troponin I (0.000-0.034) ng/mL NT-Pro-B Natriuret Pep (0-450) pg/mL Serum Total Protein (6.3-8.2) g/dL Albumin (3.5-5.0) g/dL Serum , Qual NEGATIVE (Negative) Urine Color YELLOW (YELLOW) Urine Appearance CLEAR (CLEAR) Urine pH 7.0 (5-6) Ur Specific [place] 1.009 (1.005-1.025) Urine Protein NEGATIVE (Negative) Urine Ketones NEGATIVE (NEGATIVE) Urine Blood NEGATIVE (0-5) Simeon/ul Urine Nitrite NEGATIVE (NEGATIVE) Urine Bilirubin NEGATIVE (NEGATIVE) Urine Urobilinogen NEGATIVE (0-1) mg/dL Ur Leukocyte Esterase NEGATIVE (NEGATIVE) Urine WBC (Auto) NONE (0-5) /HPF Urine RBC (Auto) NONE SEEN (0-2) /HPF U Epithel Cells (Auto) RARE (FEW) /HPF Urine Bacteria (Auto) RARE (NEGATIVE) /HPF Urine Culture Reflexed NO (NO) Urine Glucose NEGATIVE (NEGATIVE) mg/dL Slides for Path Review 09/21/18 09/21/18 09/21/18 Range/Units 23:36 23:36 23:36 WBC 9.7 (4.0-10.5) K/mm3 RBC 4.07 L (4.1-5.4) M/mm3 Hgb 8.3 L (12.0-16.0) gm/dl Hct 29.3 L (35-47) % MCV 72.0 L (78-100) fl MCH 20.3 L (26-32) pg MCHC 28.3 L (32-36) g/dl RDW 18.7 H (11.5-14.0) % Plt Count 331 (150-450) K/mm3 MPV 9.3 (6-9.5) fl Gran % 69.7 H (36.0-66.0) % Eos # (Auto) 0.16 (0-0.5) Absolute Lymphs (auto) 1.99 (1.0-4.6) Absolute Monos (auto) 0.76 (0.0-1.3) Lymphocytes % 20.5 L (24.0-44.0) % Monocytes % 7.8 (0.0-12.0) % Eosinophils % 1.7 (0.00-5.0) % Basophils % 0.3 (0.0-0.4) % Absolute Granulocytes 6.75 (1.4-6.9) Basophils # 0.03 (0-0.4) PT (9.95-12.35) SECONDS INR (0.8-3.0) APTT (25.3-37.0) SECONDS D-Dimer (215-500) ng/mL pO2/FiO2 Ratio % VBG pH (7.32-7.42) VBG pCO2 at Pat Temp (42-55) mm/Hg VBG pO2 at Pat Temp (25-40) mm/Hg VBG HCO3 (22-28) meq/L VBG O2 Sat (Ar) (95-100) VBG Base Excess (-2.0-2.0) VBG Hemoglobin VBG Carboxyhemoglobin (0.0-6.9) % T HGB POC Potassium (3.5-5.1) Sodium 139 (137-145) mmol/L Potassium 4.3 (3.5-5.1) mmol/L Chloride 106 (98-107) mmol/L Carbon Dioxide 24 (22-30) mmol/L Anion Gap 13.2 (5-15) MEQ/L BUN 12 (7-17) mg/dL Creatinine 1.18 H (0.52-1.04) mg/dL Estimated GFR 52.9 ML/MIN Glucose 105 (74-106) mg/dL Calcium 8.8 (8.4-10.2) mg/dL Total Bilirubin 0.30 (0.2-1.3) mg/dL AST 20 (14-36) U/L ALT 15 (0-35) U/L Alkaline Phosphatase 95 (38-126) U/L Troponin I < 0.012 (0.000-0.034) ng/mL NT-Pro-B Natriuret Pep 17.8 (0-450) pg/mL Serum Total Protein 7.2 (6.3-8.2) g/dL Albumin 3.7 (3.5-5.0) g/dL Serum , Qual (Negative) Urine Color (YELLOW) Urine Appearance (CLEAR) Urine pH (5-6) Ur Specific [place] (1.005-1.025) Urine Protein (Negative) Urine Ketones (NEGATIVE) Urine Blood (0-5) Simeon/ul Urine Nitrite (NEGATIVE) Urine Bilirubin (NEGATIVE) Urine Urobilinogen (0-1) mg/dL Ur Leukocyte Esterase (NEGATIVE) Urine WBC (Auto) (0-5) /HPF Urine RBC (Auto) (0-2) /HPF U Epithel Cells (Auto) (FEW) /HPF Urine Bacteria (Auto) (NEGATIVE) /HPF Urine Culture Reflexed (NO) Urine Glucose (NEGATIVE) mg/dL Slides for Path Review YES 09/21/18 Range/Units 23:30 WBC (4.0-10.5) K/mm3 RBC (4.1-5.4) M/mm3 Hgb (12.0-16.0) gm/dl Hct (35-47) % MCV (78-100) fl MCH (26-32) pg MCHC (32-36) g/dl RDW (11.5-14.0) % Plt Count (150-450) K/mm3 MPV (6-9.5) fl Gran % (36.0-66.0) % Eos # (Auto) (0-0.5) Absolute Lymphs (auto) (1.0-4.6) Absolute Monos (auto) (0.0-1.3) Lymphocytes % (24.0-44.0) % Monocytes % (0.0-12.0) % Eosinophils % (0.00-5.0) % Basophils % (0.0-0.4) % Absolute Granulocytes (1.4-6.9) Basophils # (0-0.4) PT (9.95-12.35) SECONDS INR (0.8-3.0) APTT (25.3-37.0) SECONDS D-Dimer (215-500) ng/mL pO2/FiO2 Ratio 21.0 % VBG pH 7.38 (7.32-7.42) VBG pCO2 at Pat Temp 40 L (42-55) mm/Hg VBG pO2 at Pat Temp 32 (25-40) mm/Hg VBG HCO3 23.7 (22-28) meq/L VBG O2 Sat (Ar) 60.3 L (95-100) VBG Base Excess -1.3 (-2.0-2.0) VBG Hemoglobin 8.6 VBG Carboxyhemoglobin 2.3 (0.0-6.9) % T HGB POC Potassium 4.1 (3.5-5.1) Sodium (137-145) mmol/L Potassium (3.5-5.1) mmol/L Chloride (98-107) mmol/L Carbon Dioxide (22-30) mmol/L Anion Gap (5-15) MEQ/L BUN (7-17) mg/dL Creatinine (0.52-1.04) mg/dL Estimated GFR ML/MIN Glucose (74-106) mg/dL Calcium (8.4-10.2) mg/dL Total Bilirubin (0.2-1.3) mg/dL AST (14-36) U/L ALT (0-35) U/L Alkaline Phosphatase (38-126) U/L Troponin I (0.000-0.034) ng/mL NT-Pro-B Natriuret Pep (0-450) pg/mL Serum Total Protein (6.3-8.2) g/dL Albumin (3.5-5.0) g/dL Serum , Qual (Negative) Urine Color (YELLOW) Urine Appearance (CLEAR) Urine pH (5-6) Ur Specific [place] (1.005-1.025) Urine Protein (Negative) Urine Ketones (NEGATIVE) Urine Blood (0-5) Simeon/ul Urine Nitrite (NEGATIVE) Urine Bilirubin (NEGATIVE) Urine Urobilinogen (0-1) mg/dL Ur Leukocyte Esterase (NEGATIVE) Urine WBC (Auto) (0-5) /HPF Urine RBC (Auto) (0-2) /HPF U Epithel Cells (Auto) (FEW) /HPF Urine Bacteria (Auto) (NEGATIVE) /HPF Urine Culture Reflexed (NO) Urine Glucose (NEGATIVE) mg/dL Slides for Path Review - Progress Progress: improved Progress Note: 09/22/18 00:25 43-year-old morbidly obese white female arrives with complaint of shortness of breath all day since 10:00 this morning also intermittent paresthesia of the left arm as well. She has not had any problems moving on arrival patient's vitals are stable she has a pulse ox of 96 she does have a heart rate of 125 blood pressure 160/56 chest x-ray no acute disease process noted chemistry sodium 139 potassium 4.3 chloride 106 bicarbonate 24 BUN 12 creatinine 1.1 a glucose 105 patient's d-dimer unfortunately is 1861 patient's troponin less than 0.012 patient's venous gas shows a pH of 7.3 PCO2 was 40 patient's does have a CBC with a hemoglobin of 8.2 however she is chronically low last time she had a hemoglobin was in 2018 hemoglobin at that time was 8.8 patient does not give any history of bleeding. I have given the patient IV normal saline she is clear as far as her lungs go she states she is starting to feel somewhat better I was considering getting a CT of the chest and a head CT based on her symptoms as well as her elevated d- dimer. However patient thinks he is to limit passage [employer] machine. I have contacted [facility] vocational training teacher and discuss case with the . Screening personnel. They have accepted the patient for transfer they state that they will call back with an accepting physician for the patient. Patient is stable . . . 09/22/18 00:38 I discussed the patient's case with Dr. Gagnon , physician at [facility]. He has accepted the patient for transfer he also recommended that the patient receive Lovenox 1 mg per kilogram subcutaneously. 09/22/18 03:25 - Departure Departure Disposition: Transfer ([facility]) Clinical Impression: Shortness of breath, Elevated d-dimer, Paresthesia of left arm Condition: Fair Critical Care Time: No Referrals: MARYSOL FROST [Primary Care Provider] -
[2018-09-21] MEDS ORDERED: Zofran 4 MG/2 ML VIAL ONE (23:29)
[2018-09-21] MEDS ORDERED: TORAdol 30 mg Injection ONE (23:29)
[2018-09-21] MEDS ORDERED: Sodium Chloride 0.9% 1000 ML 1,000 ML ONE (23:29)
[2018-09-21 23:36] LABS: VBG BASE EXCESS -1.3 (-2.0-2.0); VBG CARBOXYHEMOGLOBIN 2.3 % T HGB (0.0-6.9); VBG HCO3- 23.7 meq/L (22-28); VBG HEMOGLOBIN 8.6; VBG O2 SATURATION 60.3 (95-100); VBG POTASSIUM 4.1 (3.5-5.1); VBG pH 7.38 (7.32-7.42)
[2018-09-21 23:40] LABS: BASOPHIL % 0.3 % (0.0-0.4); Basophil (Absolute #) 0.03 (0-0.4); Eosinophil % 1.7 % (0.00-5.0); Eosinophil (Absolute #) 0.16 (0-0.5); Granulocyte Absolute (ANC) 6.75 (1.4-6.9); Granulocytes % 69.7 % (36.0-66.0); Hematocrit 29.3 % (35-47); Hemoglobin 8.3 gm/dl (12.0-16.0); Lymphocyte (Absolute #) 1.99 (1.0-4.6); Lymphocytes % 20.5 % (24.0-44.0); Mean Corpuscular Hgb Concent. 28.3 g/dl (32-36); Mean Platelet Volume 9.3 fl (6-9.5); Monocyte (Absolute #) 0.76 (0.0-1.3); Monocytes % 7.8 % (0.0-12.0); Platelet Count 331 K/mm3 (150-450); Red Blood Count 4.07 M/mm3 (4.1-5.4); Red Cell Distribution Width 18.7 % (11.5-14.0); White Blood Count 9.7 K/mm3 (4.0-10.5)
[2018-09-21 23:43] LABS: Mean Corpuscular Hemoglobin 20.3 pg (26-32)
[2018-09-21 23:48] LABS: INR 1.14 (0.8-3.0); PROTIME 13.3 SECONDS (9.95-12.35)
[2018-09-21 23:51] LABS: PTT 24.9 SECONDS (25.3-37.0)
[2018-09-22 00:01] LABS: ALBUMIN 3.7 g/dL (3.5-5.0); ANION GAP 13.2 MEQ/L (5-15); BILIRUBIN,TOTAL 0.3 mg/dL (0.2-1.3); Calcium 8.8 mg/dL (8.4-10.2); Creatinine 1 1.18 mg/dL (0.52-1.04); NT PRO BNP 17.8 pg/mL (0-450); Potassium 4.3 mmol/L (3.5-5.1); Total Protein 7.2 g/dL (6.3-8.2)
[2018-09-22] MEDS ORDERED: ENOXAPARIN SODIUM SQ STA (00:37)
[2018-09-22 00:43] LABS: Slide Review 1 YES
[2018-09-22 01:01] VITALS: BP 154/75; PULSE 130
[2018-09-22] MEDS ORDERED: ENOXAPARIN SODIUM SQ ONE (01:04)
[2018-09-22 01:09] LABS: Appearance CLEAR (CLEAR); Bacteria RARE /HPF (NEGATIVE); Bilirubin NEGATIVE (NEGATIVE); Blood NEGATIVE Ery/ul (0-5); Epithelial Cells RARE /HPF (FEW); Glucose NEGATIVE (NEGATIVE); Ketones NEGATIVE (NEGATIVE); Leukocyte Esterase NEGATIVE (NEGATIVE); Nitrite NEGATIVE (NEGATIVE); Protein,Urine Dip NEGATIVE (Negative); Specific Gravity 1.009 (1.005-1.025); Urobilinogen NEGATIVE mg/dL (0-1)
[2018-09-22 01:10] LABS: RBC NONE SEEN /HPF (0-2)
[2018-09-22 03:25] VITALS: O2SAT 99
--- NOTE | 2018-09-22 09:53 | XRAY ---
Indication: Short of breath. Comparison: June 09, 2015. Portable apical lordotic chest remains clear. Heart is not enlarged for AP portable technique. Bony thorax intact. No new/acute findings.
== END 2018-09-22 01:27 | disposition short-term general hospital (02) ==
LOC: ED 22:52
DX: R06.02 Shortness of breath (principal); R79.1 Abnormal coagulation profile; R20.2 Paresthesia of skin; I10 Essential (primary) hypertension; E03.9 Hypothyroidism, unspecified; K21.9 Gastro-esophageal reflux disease without esophagitis; Z79.899 Other long term (current) drug therapy
CPT/HCPCS: 36000; 36415; 71045; 80053; 81001; 81025; 82805; 83880; 84484; 85025; 85379; 85610; 85730; 93005; 93041; 96360; 96372; 99284; J1650; J1885; J2405

== ENCOUNTER 2020-12-20 16:29 | Observation (INO) | payer MEDICARE ==
[2020-12-20] MEDS ORDERED: Sodium Chloride 0.9% 1000 ML 1,000 ML IV SCH (17:15)
[2020-12-20] MEDS ORDERED: PHARMACY DOSING REQUEST MC ONE (17:30)
[2020-12-20] MEDS: ENOXAPARIN SODIUM SQ SCH (18:50)
[2020-12-20] MEDS ORDERED: Vasotec 10 MG PO SCH (22:00)
[2020-12-20] MEDS ORDERED: BENADRYL 25 MG CAPSULE PO PRN (22:17)
[2020-12-21] MEDS: ENOXAPARIN SODIUM SQ SCH (05:47)
[2020-12-21 07:53] LABS: Hematocrit 26.8 % (35-47); Hemoglobin 7.3 gm/dl (12.0-16.0); Mean Cell Volume 70.9 fl (78-100); Mean Corpuscular Hemoglobin 19.3 pg (26-32); Mean Corpuscular Hgb Concent. 27.2 g/dl (32-36); Mean Platelet Volume 9.5 fl (7.5-11.0); Platelet Count 321 K/mm3 (150-450); Red Blood Count 3.78 M/mm3 (4.1-5.4); Red Cell Distribution Width 19.1 % (11.5-14.0); White Blood Count 9.3 K/mm3 (4.0-10.5)
[2020-12-21] MEDS ORDERED: PHARMACY DOSING REQUEST MC ONE (08:22)
[2020-12-21 09:26] LABS: ALBUMIN 3.7 g/dL (3.5-5.0); ALKALINE PHOSPHATASE 87 U/L (38-126); ANION GAP 17.8 MEQ/L (5-15); BLOOD UREA NITROGEN 16 mg/dL (7-17); CHLORIDE 112 mmol/L (98-107); Calcium 8.7 mg/dL (8.4-10.2); Carbon Dioxide 17 mmol/L (22-30); Creatinine 1 1.02 mg/dL (0.52-1.04); EST GLOMERULAR FILTRATION RATE > 60.0 ML/MIN; Glucose 107 mg/dL (74-106); Potassium 4.1 mmol/L (3.5-5.1); SGOT/AST 27 U/L (14-36); SGPT/ALT 22 U/L (0-35); SODIUM 142 mmol/L (137-145); Total Protein 6.9 g/dL (6.3-8.2)
[2020-12-21] MEDS ORDERED: ANTIVERT 25 MG PO PRN (09:30)
[2020-12-21] MEDS ORDERED: TOPIRAMATE PO SCH (10:00)
[2020-12-21] MEDS ORDERED: Lasix 40 MG PO SCH (10:00)
[2020-12-21] MEDS ORDERED: NON-FORMULARY ITEM (Esomeprazole Magnesium [Nexium] 20 MG) PO SCH (10:00)
[2020-12-21] MEDS ORDERED: SYNTHROID 100 MCG PO SCH (10:00)
[2020-12-21] MEDS ORDERED: Klor Con 10 MEQ PO SCH (10:00)
[2020-12-21] MEDS ORDERED: FEOSOL 325 MG PO SCH (10:00)
[2020-12-21] MEDS ORDERED: clonazePAM PO SCH (10:00)
[2020-12-21] MEDS ORDERED: Paxil 20 MG PO SCH (10:00)
[2020-12-21] MEDS ORDERED: Protonix 40MG Tablet PO SCH (10:00)
[2020-12-21] MEDS ORDERED: NON-FORMULARY ITEM (Paroxetine Hcl [Paroxetine Hcl] 40 MG) PO SCH (10:00)
--- NOTE | 2020-12-21 12:15 | XRAY ---
Exam: Bilateral lower extremity duplex Doppler venous ultrasound exam from 12/21/2020. Comparison: CT of the chest with IV contrast, per PE protocol from 12/20/2020. Indication: Leg pain; recent CT of chest from yesterday revealed bilateral pulmonary emboli, more extensive on the right than left. Technique: Jeffery scale images, color blood flow images, and Doppler tracings were obtained within both lower extremities. Findings: The hyperbaric technologist stated that the patient's exam was technically challenging, as the patient is 5 feet 4 inches tall and weighs 386 pounds. Unremarkable color blood flow and transducer compression is seen throughout the major deep veins of the right lower extremity. Doppler signal appeared unremarkable. No definite DVT was seen. On the left side, there is questionable clot within the left common femoral vein. An echogenic clot is seen within the greater saphenous vein near the junction with the proximal superior femoral vein. Unremarkable transducer compression and color flow are seen within the superficial femoral vein and popliteal vein. Normal transducer compression is seen within the distal left posterior tibial veins. Impression: 1. The examination was technically difficult due to the patient's morbid obesity. 2. However, there appeared to be clot within the greater saphenous vein of the proximal left thigh near the junction with the proximal superior femoral vein. There is also questionable clot within the left common femoral vein. 3. No other evidence of DVT is seen within either lower extremity.
[2020-12-21 12:54] LABS: Appearance CLOUDY (CLEAR); Bacteria FEW /HPF (NEGATIVE); Bilirubin NEGATIVE (NEGATIVE); Blood SMALL Ery/ul (0-5); Epithelial Cells RARE /HPF (FEW); Glucose NEGATIVE (NEGATIVE); Ketones NEGATIVE (NEGATIVE); Leukocyte Esterase MODERATE (NEGATIVE); Mucus SLIGHT /HPF (NEGATIVE); Nitrite NEGATIVE (NEGATIVE); Protein,Urine Dip 30 (Negative); Specific Gravity 1.046 (1.005-1.025); Urobilinogen 2 mg/dL (0-1)
[2020-12-21 13:09] LABS: Absolute Neutrophil Ct (ANC) 8.02 (1.4-6.9); BASOPHIL % 0.4 % (0.0-0.4); Basophil (Absolute #) 0.04 (0-0.4); Eosinophil % 1.3 % (0.00-5.0); Eosinophil (Absolute #) 0.14 (0-0.5); Hematocrit 27.4 % (35-47); Hemoglobin 7.5 gm/dl (12.0-16.0); Lymphocyte (Absolute #) 1.68 (1.0-4.6); Mean Cell Volume 71.4 fl (78-100); Mean Corpuscular Hemoglobin 19.5 pg (26-32); Mean Corpuscular Hgb Concent. 27.4 g/dl (32-36); Mean Platelet Volume 9.8 fl (7.5-11.0); Monocytes % 5.7 % (0.0-12.0); Neutrophil % 76.6 % (36.0-66.0); Platelet Count 305 K/mm3 (150-450); Red Blood Count 3.84 M/mm3 (4.1-5.4); Red Cell Distribution Width 19.3 % (11.5-14.0); White Blood Count 10.5 K/mm3 (4.0-10.5)
[2020-12-21 14:36] LABS: ANISOCYTOSIS 2+; Hypochromia 2+; Lymphocytes 22 % (24-44); Microcytosis 1+; Monocyte 5 % (0.0-12.0); Neutrophils 73 % (36.0-66.0); Platelet Estimate NORMAL (NORMAL); Total Cells Counted 100
[2020-12-21 15:00] VITALS: BP 129/64; PULSE 120; O2SAT 95
[2020-12-21] MEDS ORDERED: ELIQUIS 2.5 MG TABLET PO SCH (18:00)
[2020-12-28] MEDS ORDERED: ELIQUIS 2.5 MG TABLET PO SCH (10:00)
[2021-01-04] MEDS ORDERED: MEDROXYPROGESTERONE ACETATE 150 MG IM SCH (09:30)
--- NOTE | 2021-01-25 08:25 | SSS ---
DISCHARGE DIAGNOSES: 1) DEEP VEIN THROMBOSIS LEFT LEG. 2) PULMONARY EMBOLISM. 3) HYPOXIA. 4) MORBID OBESITY. HISTORY: The patient is a 45-year-old white female who presented to the emergency room with complaints of shortness of breath. The patient was seen in the emergency room and had a prolonged stay there over 24 hours. The patient was found to have deep vein thrombosis and wished to transfer to [facility] who did accept the patient but the patient was held due to inability of beds. The patient was in the emergency room for approximately 24 hours when she was then placed in observation in medical/surgical [facility] for the above problems. The patient after her initial O2 saturation being at 85% was improved with oxygen to 91% and rechecked at 94%. She was given Lovenox in the emergency room and placed on Eliquis p.o. The patient remained stable and was able to be eventually discharged home on Eliquis at 5 mg b.i.d. PAST MEDICAL/SURGICAL HISTORY: Significant for hypertension, hypothyroid, vertigo, anxiety and depression. HOME MEDICATIONS: Currently include Enalapril 10 mg at night, Lasix 40 mg daily, levothyroxine 100 mcg daily, meclizine 25 mg PRN for dizziness, paroxetine 40 mg daily, potassium 10 mEq daily. ALLERGIES: NKDA. PHYSICAL EXAMINATION: The patient's physical examination otherwise revealed a morbidly obese white female of 175 kg body weight. HEENT: Normocephalic, atraumatic. Pupils equal round reactive to light. Extraocular movements intact. Oropharynx is pink and moist. NECK: Supple without lymphadenopathy, thyromegaly or JVD. CHEST: Clear to auscultation although it was felt the breath sounds were somewhat diminished. HEART: Regular rate and rhythm without murmurs, rubs or gallops. Initially she was tachycardic in the emergency room and this also did resolve to heart rate of under 100 with oxygen supplementation. ABDOMEN: Soft. No palpable masses. EXTREMITIES: Without significant cyanosis, clubbing. There is noted to be slight edema in the left leg. NEUROLOGIC: The patient is alert and oriented x3 with no focal deficits. HOSPITAL COURSE: The patient was kept on the medical/surgical [facility] with evaluation by physical therapy and occupational therapy. She was able to ambulate. Her oxygen saturations stayed okay while on supplemental oxygen at 2 liters nasal cannula. The patient was eventually discharged home as there was still no bed available at [facility] and she was felt to no longer need acute care hospital stay. At this time the patient was discharged home with instructions to follow up with her specialist in pulmonary in [place].
== END 2020-12-21 16:35 | disposition home health service (06) ==
LOC: MED SURG 16:49
PROVIDERS: ADMIT Family Medicine; ATTEND Family Medicine
DX: I82.402 Acute embolism and thrombosis of unspecified deep veins of left lower extremity (principal); I26.99 Other pulmonary embolism without acute cor pulmonale; D64.9 Anemia, unspecified; R09.02 Hypoxemia; Z20.822 Contact with and (suspected) exposure to COVID-19; E66.01 Morbid (severe) obesity due to excess calories; Z79.899 Other long term (current) drug therapy; I10 Essential (primary) hypertension; E03.9 Hypothyroidism, unspecified
CPT/HCPCS: 36415; 71260; 80053; 81001; 83880; 85025; 85379; 87077; 87086; 87186; 93005; 93268; 93970; 94762; G0378; U0003; J1650; A9270-GY